=== PATIENT | male | born 2000 | race Caucasian/White ===

== ENCOUNTER 2022-11-30 20:52 | Emergency (ER) | payer SELFPAY ==
[~2022-11-30] VITALS: Ht 182.9 cm; Wt 69.0 kg
[2022-11-30 20:54] VITALS: O2SAT 98
[2022-11-30] MEDS ORDERED: BACITRACIN ZINC OINT UDPKT TOP ONE (22:45)
[2022-11-30] MEDS ORDERED: IBUPROFEN 600MG TABLET PO ONE (22:45)
[2022-11-30 22:58] VITALS: BP 134/82
[2022-11-30] MEDS ORDERED: CYCL5TAB PO (23:59)
[2022-11-30] MEDS ORDERED: NAPR-681 PO (23:59)
[2022-12-01 00:39] VITALS: PULSE 91; RESP 18; TEMP 97.9
== END 2022-12-01 00:41 | disposition home or self-care (01) ==
LOC: ER 20:52
DX: S39.012A Strain of muscle, fascia and tendon of lower back, initial encounter (principal); M79.605 Pain in left leg; V49.49XA Driver injured in collision with other motor vehicles in traffic accident, initial encounter; Y93.89 Activity, other specified; Y92.89 Other specified places as the place of occurrence of the external cause; Y99.8 Other external cause status
CPT/HCPCS: 72110; 73590; 99284